=== PATIENT | female | born 1980 | race Caucasian/White ===

== ENCOUNTER 2018-12-28 10:17 | Emergency (ER) | payer MEDICAID ==
[~2018-12-28] VITALS: Ht 157.5 cm; Wt 70.0 kg
[2018-12-28] MEDS ORDERED: ACETAMINOPHEN 325MG TABLET PO ONE (11:00)
[2018-12-28 12:19] VITALS: BP 118/74
== END 2018-12-28 12:30 | disposition home or self-care (01) ==
LOC: ER 10:17
DX: O26.893 Other specified pregnancy related conditions, third trimester (principal); O99.513 Diseases of the respiratory system complicating pregnancy, third trimester; M79.661 Pain in right lower leg; Z3A.28 28 weeks gestation of pregnancy
CPT/HCPCS: 93971; 99284

== ENCOUNTER 2019-02-04 08:14 | Emergency (ER) | payer MEDICAID ==
[~2019-02-04] VITALS: Ht 157.5 cm; Wt 73.0 kg
[2019-02-04] MEDS ORDERED: ALBUTEROL (0.083%) 2.5MG/3ML NEB HHN STA (10:18)
[2019-02-04] MEDS ORDERED: IPRATROPIUM BROMIDE (0.02%) 0.5MG/2.5ML NEB HHN STA (10:18)
[2019-02-04 12:55] VITALS: BP 119/61
== END 2019-02-04 13:01 | disposition home or self-care (01) ==
LOC: ER 08:14
DX: O26.893 Other specified pregnancy related conditions, third trimester (principal); J45.909 Unspecified asthma, uncomplicated; Z3A.33 33 weeks gestation of pregnancy
CPT/HCPCS: 94644; 99285; J7611

== ENCOUNTER 2020-07-04 07:17 | Emergency (ER) | payer MEDICAID ==
[~2020-07-04] VITALS: Ht 154.9 cm; Wt 76.0 kg
[2020-07-04] MEDS ORDERED: DIPHENHYDRAMINE 25MG CAPSULE PO ONE (07:45)
[2020-07-04] MEDS ORDERED: ACETAMINOPHEN 325MG TABLET PO ONE (07:45)
[2020-07-04 07:50] VITALS: BP 115/72
== END 2020-07-04 07:50 | disposition home or self-care (01) ==
LOC: ER 07:17
DX: O26.893 Other specified pregnancy related conditions, third trimester (principal); T63.301A Toxic effect of unspecified spider venom, accidental (unintentional), initial encounter; J45.909 Unspecified asthma, uncomplicated; Z3A.29 29 weeks gestation of pregnancy; Y92.018 Other place in single-family (private) house as the place of occurrence of the external cause
CPT/HCPCS: 99283; Q0163

== ENCOUNTER 2024-09-20 15:15 | Emergency (ER) | payer MEDICAID ==
[~2024-09-20] VITALS: Ht 157.5 cm; Wt 71.0 kg
[2024-09-20 15:40] VITALS: TEMP 100.6; O2SAT 99
[2024-09-20 18:45] VITALS: BP 120/77; PULSE 106; RESP 18
[2024-09-20] MEDS: IBUPROFEN 600MG TABLET PO ONE (18:45)
[2024-09-20 21:10] LABS: BASOPHILS % 0.2 % (0.0-2.0); EOSINOPHILS % 0.1 % (0.0-5.0); HEMATOCRIT. 33.8 % (36.0-48.0); HEMOGLOBIN. 11.6 g/dL (12.0-16.0); LYMPHOCYTES % 8.4 % (20.0-50.0); MEAN CORPUSCULAR HEMOGLOBIN 31.2 pg (28.0-32.0); MEAN CORPUSCULAR HGB CONC 34.2 g/dL (31.0-37.0); MEAN CORPUSCULAR VOLUME 91.3 fL (81.0-99.0); MONOCYTES % 6.9 % (2.0-8.0); NEUTROPHILS % 84.4 % (40.0-76.0); PLATELET 236 x1000/uL (130-400); RED BLOOD CELL COUNT 3.71 mill/uL (4.2-5.4); RED CELL DISTRIBUTION WIDTH 13.9 % (11.6-14.6); WHITE BLOOD COUNT 10.7 x1000/uL (4.5-11.0)
[2024-09-20 21:11] LABS: CHLORIDE 105 mEq/L (98-107); POTASSIUM 3.4 mEq/L (3.5-5.1); SODIUM 139 mEq/L (136-145)
[2024-09-20 21:12] LABS: CALCIUM 8.9 mg/dL (8.7-10.4); CARBON DIOXIDE 25 mEq/L (21-32)
[2024-09-20 21:17] LABS: CREATININE 0.8 mg/dL (0.6-1.0); GLUCOSE 128 mg/dL (70-105); UREA NITROGEN BLOOD 11 mg/dL (9-23)
[2024-09-20 21:19] LABS: ALANINE AMINOTRANSFERASE 15 IU/L (10-49); ALBUMIN 4.2 g/dL (3.2-4.8); ASPARTATE AMINOTRANSFERASE 23 IU/L (<34); BILIRUBIN TOTAL 0.5 mg/dL (0.1-1.0); PROTEIN TOTAL 7.2 g/dL (6.0-8.3)
[2024-09-20] MEDS ORDERED: GUAI-450 MT (21:27)
[2024-09-20] MEDS ORDERED: ALBU18HF2 IH (21:27)
[2024-09-20] MEDS ORDERED: P50 MT (21:27)
== END 2024-09-20 23:30 | disposition home or self-care (01) ==
LOC: ER 15:15
DX: B34.9 Viral infection, unspecified (principal); J45.909 Unspecified asthma, uncomplicated; Z79.899 Other long term (current) drug therapy
CPT/HCPCS: 36415; 71045; 80053; 85025; 99284